=== PATIENT | female | born 1975 | race Caucasian/White ===

== ENCOUNTER → 2016-06-17 | Outpatient (CLI) | payer OTHER ==
[~2016-06-17] MED LIST: AZIT500T26 PO
--- NOTE | 2016-06-17 13:14 | DIAGNOSTIC IMAGING REPORT ---
CT OF THE CHEST WITH IV CONTRAST CLINICAL HISTORY: Multiple pulmonary nodules. COMPARISON STUDY: 05/02/2016 TECHNIQUE: Following the IV administration of 119 mL of Optiray-320, CT of the thorax was performed from the thoracic inlet to the lung bases. Images are reviewed in the axial, sagittal, and coronal planes. IV contrast was administered without complication. CT DOSE: 222.76 mGy.cm FINDINGS: Thyroid: Imaged portions of the thyroid gland are normal in appearance. Thoracic aorta: The thoracic aorta is normal in course and caliber, noting standard 3-vessel arch anatomy. No aneurysm or dissection is seen. Pulmonary vasculature: The pulmonary trunk is normal in caliber. There are no central filling defects identified to suggest pulmonary embolus. Note that this examination was not protocoled for the evaluation of pulmonary emboli. HEART: The heart is normal in size and configuration, without pericardial effusion. Lungs and pleural spaces: No pleural effusions are visualized. There are bilateral subcentimeter pulmonary nodules similar to the prior study. The largest is located within the right lower lobe measuring 9 mm. There is been interval resolution of the previous identified bilateral upper lobe airspace opacities consistent with a resolving pneumonia. Biapical blebs remain unchanged Mediastinum: There is no mediastinal lymphadenopathy. Nataly: Clear. Axilla: Clear. Upper abdomen: Partially visualized upper abdominal viscera is within normal limits. Skeletal structures: There are no lytic or blastic osseous lesions. IMPRESSION: 1. Interval resolution of the previously identified bilateral upper lobe pneumonia 2. Stable bilateral pulmonary nodules, the largest of which measures 9 mm. Please refer to below summary of Fleischner criteria recommendations for follow-up of incidental CT nodules (Carolynn Hardy, Guidelines for management of small pulmonary nodules detected on CT scans: A statement from the Fleischner Society, Radiology 237: [phone].) Low Risk Patient: Minimal or no smoking or other known risk factors for malignancy <=4 mm: No follow-up needed. >4-6 mm: Initial follow-up CT at 12 months; if unchanged, no further follow-up. >6-8 mm: Initial follow-up CT at 6-12 months then at 18-24 months if no change. >8 mm: Follow-up CT at \R\3, 9, 24 months, or PET and/or biopsy. High Risk Patient: History of smoking or other known risk factors <=4 mm: Follow-up at 12 months; if unchanged, no further follow-up. >4-6 mm: Initial follow-up CT at 6-12 months then at 18-24 months if no change. >6-8 mm: Initial follow-up CT at 3-6 months then at 9-12 and 24 months if no change. >8 mm: Same as low risk patient. Note: Nodule size measured as average of length and width. Ground glass or partly solid nodules may require longer follow-up to exclude indolent adenocarcinoma. Electronically signed by: Anthony Shields M.D. 06/17/2016 1:13 PM Dictated Date/Time: 06/17/2016 1:05 PM
== END | disposition home or self-care (01) ==
LOC: C.CTS 12:36
PROVIDERS: ATTEND Internal Medicine Critical Care Medicine
DX: R91.8 Other nonspecific abnormal finding of lung field (principal)

== ENCOUNTER → 2016-12-19 | Outpatient (CLI) | payer OTHER ==
--- NOTE | 2016-12-19 14:20 | DIAGNOSTIC IMAGING REPORT ---
(CHEST) THORAX WITHOUT CLINICAL HISTORY: R91.8 Multiple pulmonary nodules COMPARISON STUDY: 06/17/2016 , April 2016 CT DOSE: 188.41 mGycm TECHNIQUE: CT of the thorax was performed from the thoracic inlet to the lung bases. Images are reviewed in the axial, sagittal, and coronal planes. IV contrast was not administered for this examination. FINDINGS: Thyroid: Imaged portions of the thyroid gland are normal in appearance. Thoracic aorta: The thoracic aorta is normal in course and caliber, noting standard 3 vessel arch anatomy. Heart: The heart is normal in size and configuration, without pericardial effusion. Lungs and pleural spaces: No pleural effusions are visualized. There is no focal pulmonary consolidation. There are multiple bilateral subcentimeter solid pulmonary nodules. The largest measures 7 mm. There are biapical blebs. 12 month follow-up is recommended Mediastinum: There is no mediastinal lymphadenopathy. Nataly: Clear. Axilla: Clear. Upper abdomen: Partially visualized upper abdominal viscera is within normal limits. Skeletal structures: There are no lytic or blastic osseous lesions. IMPRESSION: 1. Stable bilateral subcentimeter solid pulmonary nodules. 12 month follow-up is recommended. Electronically signed by: Anthony Shields M.D. 12/19/2016 2:19 PM Dictated Date/Time: 12/19/2016 2:10 PM
== END | disposition home or self-care (01) ==
LOC: C.CTS 13:54
PROVIDERS: ATTEND Internal Medicine Critical Care Medicine
DX: R91.8 Other nonspecific abnormal finding of lung field (principal)

== ENCOUNTER → 2017-02-18 | Outpatient (CLI) | payer OTHER ==
[2017-02-18 09:54] LABS: BLOOD UREA NITROGEN 8 mg/dl (7-18); BUN/CREATININE RATIO 11.7 (10-20); CALCIUM 9.2 mg/dl (8.5-10.1); CARBON DIOXIDE 28 mmol/L (21-32); CHLORIDE 107 mmol/L (98-107); CREATININE 0.66 mg/dl (0.60-1.20); GLUCOSE 86 mg/dl (70-99); POTASSIUM 3.4 mmol/L (3.5-5.1); SODIUM 141 mmol/L (136-145)
[2017-02-18 09:57] LABS: CHOLESTEROL 156 mg/dl (0-200); CHOLESTEROL/HDL RATIO 3.3; HDL CHOLESTEROL 48 mg/dl; LDL CHOLESTEROL CALCULATED 95 mg/dl; TRIGLYCERIDES 67 mg/dl (0-150); VERY LOW DENSITY LIPOPROT CALC 13 mg/dl
== END | disposition home or self-care (01) ==
LOC: C.LAB 07:27
PROVIDERS: ATTEND Nurse Practitioner Family
DX: Z13.220 Encounter for screening for lipoid disorders (principal)

== ENCOUNTER 2017-06-10 11:52 | Emergency (ER) | payer OTHER ==
[~2017-06-10] VITALS: Ht 167.6 cm; Wt 61.0 kg
[2017-06-10 12:02] VITALS: TEMP 36.7; Ht 167.6 cm; Wt 61.0 kg
[2017-06-10] MEDS ORDERED: HYDROCODONE/ACETAMIN 5/325MG TAB PO STA (12:44)
--- NOTE | 2017-06-10 13:02 | DIAGNOSTIC IMAGING REPORT ---
R FOOT MIN 3 VIEWS ROUTINE CLINICAL HISTORY: 41 years-old Female presenting with right foot pain/injury. TECHNIQUE: Frontal, oblique, and lateral views of the right foot were obtained. COMPARISON: None. FINDINGS: Partially visualized compression plate and screw fixation of the distal fibula with 2 transsyndesmotic screws across the tibiofibular articulation. Slight lucency noted at these 2 screws along the fibular course suggesting loosening. Intra-articular mildly comminuted fracture of the base of the fifth metatarsal with extension into the articulation with the cuboid and potentially with the base of the fourth metatarsal. There is slight diastases at the fracture plane. Mild overlying soft tissue swelling. Degenerative changes of the first metatarsophalangeal joint. IMPRESSION: 1. Mildly comminuted intra-articular fracture of the base of the fifth metatarsal (pseudo-Williamson fracture). 2. Possible loosening of the transsyndesmotic screws. Electronically signed by: Trey Denson M.D. 06/10/2017 1:01 PM Dictated Date/Time: 06/10/2017 12:58 PM
--- NOTE | 2017-06-10 13:09 | EMERGENCY ROOM VISIT NOTE ---
ED Visit Note First contact with patient: 12:09 CHIEF COMPLAINT: Right foot injury HISTORY of present illness: This 41-year-old female presents the ER with chief complaint of right foot injury. The patient states that earlier today she was on a step ladder approximately 18 inches off the ground and fell off and rolled her right foot. The patient states he was too painful to bear weight. The patient admits to prior ankle surgery many years ago. She does admit that she has seen Dr. Cortez in the past .She does not have any ankle pain at this time. The patient states this over the lateral aspect of her foot. The patient took ibuprofen 600 mg by mouth prior to coming to the ER. REVIEW OF SYSTEMS: 6 system review was performed and was negative unless stated otherwise in history of present illness. PMH: The patient is healthy; prior right ankle fracture, tubal ligation SOCIAL HISTORY: Patient lives with her family. The patient admits to tobacco use and occasional alcohol use. PHYSICAL EXAM: Vital Signs: Were reviewed Reviewed Nurse's notes. GENERAL: 41- year-old white female appears in no acute distress. MENTAL Status: Alert and oriented 3. RIGHT FOOT: No gross bony deformity noted. The patient is tender to palpation over the dorsal and plantar aspect of the fourth and fifth metatarsals. RIGHT ANKLE: Patient has full range of motion without pain. Patient nontender to palpation over both the medial and lateral malleoli. EMERGENCY DEPARTMENT COURSE: The patient was evaluated. The patient was given [place] 5/325 mg one tablet by mouth for pain. X-ray of the right foot was ordered interpreted by the radiologist and myself. DIAGNOSTICS:R FOOT MIN 3 VIEWS ROUTINE CLINICAL HISTORY: 41 years-old Female presenting with right foot pain/injury. TECHNIQUE: Frontal, oblique, and lateral views of the right foot were obtained. COMPARISON: None. FINDINGS: Partially visualized compression plate and screw fixation of the distal fibula with 2 transsyndesmotic screws across the tibiofibular articulation. Slight lucency noted at these 2 screws along the fibular course suggesting loosening. Intra-articular mildly comminuted fracture of the base of the fifth metatarsal with extension into the articulation with the cuboid and potentially with the base of the fourth metatarsal. There is slight diastases at the fracture plane. Mild overlying soft tissue swelling. Degenerative changes of the first metatarsophalangeal joint. IMPRESSION: 1. Mildly comminuted intra-articular fracture of the base of the fifth metatarsal (pseudo-Williamson fracture). 2. Possible loosening of the transsyndesmotic screws. Electronically signed by: Trey Denson M.D. 06/10/2017 1:01 PM Dictated Date/Time: 06/10/2017 12:58 PM The patient was informed of the findings. The patient was placed in a postop shoe and given crutches. The patient was discharged home in stable condition. DIAGNOSIS: Right fifth metatarsal fracture TREATMENT: Ice and elevation as much as possible over the next 24 hours. Ibuprofen 600 mg every 6 hours with food for pain. Take [place] as needed for more severe pain. Do not drive while taking the [place]. Wear postop shoe and use crutches for ambulation until evaluated by orthopedics. Absolutely no weightbearing until evaluated by orthopedics. Call Dr. Cortez for follow-up appointment. Problem List Medical Problems: (1) No known allergies Status: Chronic (2) No known health problems Status: Chronic Current/Historical Medications No Active Prescriptions or Reported Meds Allergies Coded Allergies: No Known Allergies (Verified , 06/10/17) Vital Signs Date Time Temp Pulse Resp B/P (MAP) Pulse Ox O2 Delivery O2 Flow Rate FiO2 06/10/17 12:02 36.7 104 20 130/80 98 Room Air Medications Administered Medications (Trade) Dose Ordered Sig/Carli Route Start Time Stop Time Status Last Admin Dose Admin Acetaminophen/ Hydrocodone Bitart ([place] 5/325 Tab) 1 tab NOW STAT PO 06/10/17 12:44 06/10/17 12:45 DC 06/10/17 12:44 1 TAB Departure Information Prescriptions No Active Prescriptions or Reported Meds Referrals Jon Art III, CRNP (PCP) Patient Instructions [facility]
[2017-06-10] MEDS ORDERED: HYDR-5688 PO (13:12)
[2017-06-10 13:44] VITALS: BP 133/82; PULSE 83; O2SAT 99
== END 2017-06-10 13:46 | disposition home or self-care (01) ==
LOC: C.EDB 11:55 → C.EDD 13:46
DX: S92.351A Displaced fracture of fifth metatarsal bone, right foot, initial encounter for closed fracture (principal); W11.XXXA Fall on and from ladder, initial encounter; Z98.51 Tubal ligation status; Z72.0 Tobacco use

== ENCOUNTER → 2017-06-20 | Outpatient (CLI) | payer OTHER ==
[~2017-06-20] MED LIST changes: -AZIT500T26 PO; +HYDR-5688 PO
== END | disposition home or self-care (01) ==
LOC: C.RDSM 12:50
PROVIDERS: ATTEND Physical Medicine & Rehabilitation Sports Medicine
DX: S92.351A Displaced fracture of fifth metatarsal bone, right foot, initial encounter for closed fracture (principal); X58.XXXA Exposure to other specified factors, initial encounter

== ENCOUNTER → 2017-07-18 | Outpatient (CLI) | payer OTHER | END | disposition home or self-care (01) | LOC: C.RDSM 09:30 | PROVIDERS: ATTEND Physical Medicine & Rehabilitation Sports Medicine | DX: S92.351A Displaced fracture of fifth metatarsal bone, right foot, initial encounter for closed fracture (principal); X58.XXXA Exposure to other specified factors, initial encounter ==

== ENCOUNTER → 2017-08-15 | Outpatient (CLI) | payer OTHER | END | disposition home or self-care (01) | LOC: C.RDSM 12:07 | PROVIDERS: ATTEND Physical Medicine & Rehabilitation Sports Medicine | DX: S92.351A Displaced fracture of fifth metatarsal bone, right foot, initial encounter for closed fracture (principal); X58.XXXA Exposure to other specified factors, initial encounter ==